=== PATIENT | female | born 1965 | race Two or more races ===

== ENCOUNTER 2017-02-27 21:36 | Emergency (ER) | payer MEDICAID ==
[~2017-02-27] VITALS: Ht 162.6 cm; Wt 89.8 kg
[~2017-02-27 21:36] MED LIST: ALBUTEROL SULF8.5 GM INH; AZITHROMYCIN250 MG PO; IBUPROFEN600 MG PO; NKM
[2017-02-27 22:00] VITALS: BP 159/84
[2017-02-27] MEDS ORDERED: Morphine Sulfate 4mg/ml Inj IVP ONE (22:15)
[2017-02-27 22:49] LABS: APPEARANCE,URINE CLEAR; KETONES,URINE NEGATIVE (NEGATIVE); LEUKOCYTE ESTERASE ,URINE NEGATIVE (NEGATIVE); NITRITE,URINE NEGATIVE (NEGATIVE); PH,URINE 7 (4.5-8.0); PROTEIN,URINE NEGATIVE (NEGATIVE); UROBILINOGEN,URINE NORMAL MG/DL (0.0-1.0)
[2017-02-27 22:50] LABS: BASOPHILS % (AUTO) 1.5 % (0.0-2.0); EOSINOPHILS % (AUTO) 3.3 % (0.0-3.0); LYMPHOCYTES % (AUTO) 47.7 % (20.0-45.0); MEAN CORPUSCULAR HEMOGLOBIN 29.1 PG (27.0-31.0); MEAN CORPUSCULAR HGB CONC 33.2 G/DL (32.0-36.0); MEAN CORPUSCULAR VOLUME 88 FL (80-99); MEAN PLATELET VOLUME 8.9 FL (6.5-10.1); MONOCYTES % (AUTO) 7.1 % (1.0-10.0); NEUTROPHILS % (AUTO) 40.5 % (45.0-75.0); PLATELET COUNT 171 K/UL (150-450); RED BLOOD COUNT 4.56 M/UL (4.20-5.40); RED CELL DISTRIBUTION WIDTH 11.2 % (11.6-14.8); WHITE BLOOD COUNT 6.3 K/UL (4.8-10.8)
[2017-02-27 23:03] LABS: ALANINE AMINOTRANSFERASE 44 U/L (3-33); ALBUMIN/GLOBULIN RATIO 1.3 (1.0-2.7); ANION GAP 14 (5-15); ASPARTATE AMINO TRANSFERASE 44 U/L (5-40); CALCIUM 9.3 mg/dL (8.6-10.2); CARBON DIOXIDE 25 mEQ/L (20-30); CHLORIDE 100 mEQ/L (98-107); CREATININE 0.7 mg/dL (0.5-0.9); GLOMERULAR FILTRATION RATE > 60 mL/min (>60); HEMOLYSIS 3; LIPASE 26 U/L (< 60); POTASSIUM 3.9 mEQ/L (3.4-4.9); SODIUM 139 mEQ/L (135-145); TOTAL PROTEIN 6.9 g/dL (6.6-8.7)
[2017-02-28 00:04] VITALS: BP 135/78
[2017-02-28] MEDS ORDERED: ACETAMINOPHEN-1 EAC1 ORAL (01:58)
[2017-02-28] MEDS ORDERED: IBUPROFEN600 MG ORAL (01:58)
[2017-02-28 02:10] VITALS: BP 129/83
--- NOTE | 2017-02-28 03:35 | Emergency Room Report ---
History of Present Illness General Chief Complaint: Pelvic Pain Source: Patient Present Illness HPI 51-year-old female presents ED complaining of lower pelvic pain times one day. States it started this morning. Pain is localized to left inguinal area radiating to the groin. 10 out of 10, sharp. Denies any vaginal bleeding or discharge. Denies any dysuria or hematuria. Denies any fevers or chills. Denies nausea or vomiting. No other aggravating or relieving factors. Denies any other associated symptoms Allergies: Coded Allergies: No Known Allergies (Unverified , 07/09/12) Patient History Past Medical History: none Past Surgical History: none Pertinent Family History: none Social History: Denies: alcohol use, drug use, smoking Last Menstrual Period: N/A Now: No Immunizations: UTD Reviewed Nursing Documentation: PMH: Agreed, PSxH: Agreed Nursing Documentation-PMH Hx Cardiac Problems: No Hx Cancer: No Hx Gastrointestinal Problems: No Hx Neurological Problems: No Review of Systems All Other Systems: negative except mentioned in HPI Physical Exam Vital Signs Date Time Temp Pulse Resp B/P Pulse Ox O2 Delivery O2 Flow Rate FiO2 02/27/17 21:44 98.4 84 20 159/84 96 Room Air Sp02 EP Interpretation: reviewed, normal General Appearance: no apparent distress, alert, GCS 15, non-toxic, obese Head: normocephalic, atraumatic Eyes: bilateral eye PERRL, bilateral eye normal inspection ENT: hearing grossly normal, normal pharynx, no angioedema, normal voice Neck: full range of motion, supple/symm/no masses Respiratory: chest non-tender, lungs clear, normal breath sounds, speaking full sentences Cardiovascular #1: regular rate, rhythm, no edema Cardiovascular #2: 2+ carotid (R), 2+ carotid (L), 2+ radial (R), 2+ radial (L) , 2+ dorsalis pedis (R), 2+ dorsalis pedis (L) Gastrointestinal: normal bowel sounds, soft, non-distended, no guarding, no rebound, tenderness - L inguinal area Rectal: deferred Genitourinary: normal inspection, no CVA tenderness Musculoskeletal: back normal, gait/station normal, normal range of motion, non- tender Neurologic: alert, oriented x3, responsive, motor strength/tone normal, sensory intact, speech normal Psychiatric: judgement/insight normal, memory normal, mood/affect normal, no suicidal/homicidal ideation Reflexes: 3+ bicep (R), 3+ bicep (L), 3+ tricep (R), 3+ tricep (L), 3+ knee (R) , 3+ knee (L) Skin: normal color, no rash, warm/dry, well hydrated Lymphatic: no adenopathy Medical Decision Making Diagnostic Impression: Primary Impression: Pelvic pain ER Course Hospital Course 51-year-old female to ED with left inguinal pain Differential diagnosis includes- ovarian torsion, diverticulitis, SBO Clinical course Patient placed on stretcher. After initial history and physical I ordered labs , IV fluids, pain medications and Pelvic US Labs - no leukocytosis, electrolytes ok, LFTs normal, UA + blood pelvic US nondiagnostic due to body habitus CT scan shows no acute pathology Upon reassessment, patient states pain has improved. Given improvement in symptoms and lack of acute findings, I believe patient can be safely discharged to home. Patient agrees with plan I feel this is a highly complex case requiring extensive working including EKG/ Rhythm strip, Xray/CT/US, Blood/urine lab work, repeat exams while in ED, and administration of strong opiates/narcotics for pain control, admission to hospital or close patient follow up. Diagnosis - pelvic pain Stable and discharged to home with Rx Motrin, Tylenol #3. Followup with PMD. Return to ED if symptoms recur or worsen Labs Test 02/27/17 22:30 02/27/17 22:33 White Blood Count 6.3 K/UL (4.8-10.8) Red Blood Count 4.56 M/UL (4.20-5.40) Hemoglobin 13.3 G/DL (12.0-16.0) Hematocrit 40.0 % (37.0-47.0) Mean Corpuscular Volume 88 FL (80-99) Mean Corpuscular Hemoglobin 29.1 PG (27.0-31.0) Mean Corpuscular Hemoglobin Concent 33.2 G/DL (32.0-36.0) Red Cell Distribution Width 11.2 % (11.6-14.8) Platelet Count 171 K/UL (150-450) Mean Platelet Volume 8.9 FL (6.5-10.1) Neutrophils (%) (Auto) 40.5 % (45.0-75.0) Lymphocytes (%) (Auto) 47.7 % (20.0-45.0) Monocytes (%) (Auto) 7.1 % (1.0-10.0) Eosinophils (%) (Auto) 3.3 % (0.0-3.0) Basophils (%) (Auto) 1.5 % (0.0-2.0) Sodium Level 139 mEQ/L (135-145) Potassium Level 3.9 mEQ/L (3.4-4.9) Chloride Level 100 mEQ/L (98-107) Carbon Dioxide Level 25 mEQ/L (20-30) Anion Gap 14 (5-15) Blood Urea Nitrogen 13 mg/dL (7-23) Creatinine 0.7 mg/dL (0.5-0.9) Estimat Glomerular Filtration Rate > 60 mL/min (>60) Glucose Level 120 mg/dL (74-106) Calcium Level 9.3 mg/dL (8.6-10.2) Total Bilirubin 0.2 mg/dL (0.0-1.2) Aspartate Amino Transf (AST/SGOT) 44 U/L (5-40) Alanine Aminotransferase (ALT/SGPT) 44 U/L (3-33) Alkaline Phosphatase 115 U/L (35-104) Total Protein 6.9 g/dL (6.6-8.7) Albumin 4.0 g/dL (3.5-5.2) Globulin 2.9 g/dL Albumin/Globulin Ratio 1.3 (1.0-2.7) Lipase 26 U/L (< 60) Urine Color Pale yellow Urine Appearance Clear Urine pH 7 (4.5-8.0) Urine Specific Dawson 1.010 (1.005-1.035) Urine Protein Negative (NEGATIVE) Urine Glucose (UA) Negative (NEGATIVE) Urine Ketones Negative (NEGATIVE) Urine Occult Blood Negative (NEGATIVE) Urine Nitrite Negative (NEGATIVE) Urine Bilirubin Negative (NEGATIVE) Urine Urobilinogen Normal MG/DL (0.0-1.0) Urine Leukocyte Esterase Negative (NEGATIVE) CT/MRI/US Diagnostic Results CT/MRI/US Diagnostic Results : Imaging Test Ordered: Pelvic US, CT A/P Impression Pelvic US - nondiagnostic due to body habitus CT A/P - unremarkable Last Vital Signs Date Time Temp Pulse Resp B/P Pulse Ox O2 Delivery O2 Flow Rate FiO2 02/28/17 02:10 97.5 77 16 129/83 100 Room Air Status: improved Disposition: HOME, SELF-CARE Condition: Stable Scripts Acetaminophen With Codeine (T#3) (TYLENOL #3 TAB*) Y Tab 1 TAB ORAL Q8H Y for For Pain, #20 TAB Prov: MANI NAVAS M.D. 02/28/17 Ibuprofen* (MOTRIN*) 600 Mg Tablet 600 MG ORAL Q8H Y for For Pain, #30 TAB 0 Refills Prov: MANI NAVAS M.D. 02/28/17 Patient Instructions: Pelvic Pain, Female, [id number] MANI NAVAS M.D. Feb 28, 2017 03:35
--- NOTE | 2017-02-28 08:50 | Diagnostic Imaging Report ---
Clinical Indication: Abdominal pain Technique: No oral contrast utilized, per emergency room physician request IV administration nonionic contrast. Venous phase spiral acquisition obtained through the abdomen and pelvis. Multiplanar reconstructions were generated. Total dose length product 967 mGycm. CTDIvol(s) 17 mGy. Dose reduction achieved using automated exposure control Comparison: None Findings: The appendix is normal. No evidence of diverticulosis or diverticulitis. No small bowel distention. No free or loculated intraperitoneal air or fluid. The distal esophagus, stomach, duodenum are unremarkable. The liver demonstrates diffuse low attenuation, consistent with fatty infiltration. No focal abnormality. The gallbladder, bile ducts, pancreas, spleen, adrenals are unremarkable. The right kidney demonstrates equivocal slightly diffuse low attenuation and heterogeneity to the parenchymal enhancement The left kidney demonstrates multiple cysts, as well as a few subcentimeter low-attenuation lesions which are too small to characterize. No retroperitoneal or mesenteric mass or adenopathy. No pelvic mass or adenopathy. There are very small fat-containing bilateral inguinal hernias incidentally noted. The included lung bases demonstrate atelectatic changes bilaterally. The bones demonstrate degenerative lumbar spondylosis changes. Impression: Equivocally abnormal right renal enhancement, could indicate pyelonephritis changes. Correlate with clinical and laboratory findings No other acute abnormality Fatty liver Multiple left renal cysts. Multiple left renal subcentimeter low-attenuation regions, too small to characterize, most likely benign simple cortical cysts. No further followup necessary Incidental finding of bilateral basilar pulmonary atelectasis, degenerative lumbar spondylosis, small fat-containing bilateral inguinal hernias This agrees with the preliminary interpretation provided overnight by [facility] teleradiology service. The CT scanner at [facility] [place] [facility] is accredited by the [employer] and the scans are performed using protocols designed to limit radiation exposure to as low as reasonably achievable to attain images of sufficient resolution adequate for diagnostic evaluation.
--- NOTE | 2017-03-01 08:24 | Diagnostic Imaging Report ---
Indication: ABD PAIN Technique: Transabdominal and transvaginal images Comparison: None Findings: Exam is limited due to patient body habitus. Uterus measures 7.8 cm length by 3.8 cm AP. Endometrium measures 8 mm thick. No gross myometrial abnormalities. Right ovary measures 2.7 cm in length. Left ovary findings in meters in length. No adnexal mass demonstrated. No free cul-de-sac fluid. Impression: Limited due to body habitus. Essentially unremarkable exam
== END 2017-02-28 02:10 | disposition home or self-care (01) ==
LOC: EMR 22:02
DX: R10.2 Pelvic and perineal pain (principal); K76.0 Fatty (change of) liver, not elsewhere classified; N28.1 Cyst of kidney, acquired; M47.816 Spondylosis without myelopathy or radiculopathy, lumbar region; K40.90 Unilateral inguinal hernia, without obstruction or gangrene, not specified as recurrent
CPT/HCPCS: 36415; 74177; 76830; 76856; 80053; 81003; 83690; 85025; 96360; 96374; 99284; J2270; J7040; Q9967

== ENCOUNTER 2019-03-31 20:08 | Inpatient (IN) | payer MEDICAID ==
[~2019-03-31] VITALS: Ht 162.6 cm; Wt 98.9 kg
[~2019-03-31 20:08] MED LIST changes: +ACETAMINOPHEN-1 EAC1 ORAL; +IBUPROFEN600 MG ORAL
--- NOTE | 2019-03-31 20:24 | NUR ---
ED Nurse Note: Pt ambulated to ED from home c/o sudden pressure in chest as well as 8/10 headache since 5pm, pt c/o dizziness, denies cardiac hx. VSS A&Ox4
[2019-03-31 20:25] VITALS: BP 158/93
[2019-03-31] MEDS ORDERED: Aspirin Baby 81mg ORAL ONE (20:30)
[2019-03-31 20:35] LABS: HEMATOCRIT 42.5 % (37.0-47.0); HEMOGLOBIN 14.6 G/DL (12.0-16.0); LYMPHOCYTES % (AUTO) 41.9 % (20.0-45.0); MEAN CORPUSCULAR VOLUME 84 FL (80-99); MONOCYTES % (AUTO) 7.3 % (1.0-10.0); NEUTROPHILS % (AUTO) 45.7 % (45.0-75.0); PLATELET COUNT 185 K/UL (150-450); RED BLOOD COUNT 5.06 M/UL (4.20-5.40); RED CELL DISTRIBUTION WIDTH 10.7 % (11.6-14.8)
[2019-03-31 20:45] LABS: INR 0.9 (0.9-1.1)
[2019-03-31 20:46] LABS: ANION GAP 7 mmol/L (5-15); BLOOD UREA NITROGEN 7 mg/dL (7-18); CALCIUM 9.2 MG/DL (8.5-10.1); CARBON DIOXIDE 28 MMOL/L (21-32); CHLORIDE 103 MMOL/L (98-107); CREATININE 0.7 MG/DL (0.55-1.30); POTASSIUM 3.7 MMOL/L (3.5-5.1); SODIUM 138 MMOL/L (136-145)
--- NOTE | 2019-03-31 20:50 | Emergency Room Report ---
History of Present Illness General Chief Complaint: Chest Pain Source: Patient Present Illness HPI 53-year-old female presents with chest pain history of ACS in her family, mother had a heart attack, patient states her chest pain feels pressure-like started at 5 PM has been constant, denies any aggravating relieving factors, no radiation of her pain, no nausea, no vomiting, she feels short of breath patient presents for evaluation. Allergies: Coded Allergies: No Known Allergies (Unverified , 07/09/12) Patient History Past Medical History: see triage record Social History: Reports: alcohol use - Social Last Menstrual Period: n/a Reviewed Nursing Documentation: PMH: Agreed; PSxH: Agreed Nursing Documentation-PMH Past Medical History: No Stated History Hx Cardiac Problems: No Hx Cancer: No Hx Gastrointestinal Problems: No Hx Neurological Problems: No Review of Systems All Other Systems: negative except mentioned in HPI Physical Exam Vital Signs Date Time Temp Pulse Resp B/P (MAP) Pulse Ox O2 Delivery O2 Flow Rate FiO2 03/31/19 20:12 98.8 88 18 158/93 (114) 94 Room Air Sp02 EP Interpretation: reviewed, normal General Appearance: well appearing, no apparent distress, alert Head: normocephalic, atraumatic Eyes: bilateral eye PERRL, bilateral eye EOMI ENT: uvula midline, moist mucus membranes Neck: supple, thyroid normal, supple/symm/no masses Respiratory: lungs clear, no respiratory distress, no retraction, no accessory muscle use Cardiovascular #1: normal peripheral pulses, regular rate, rhythm, no edema, no gallop, no murmur Gastrointestinal: non tender, soft, no guarding, no rebound Musculoskeletal: normal inspection Neurologic: alert, oriented x3 Psychiatric: mood/affect normal Skin: no rash, warm/dry Medical Decision Making Diagnostic Impression: Primary Impression: Chest pain ER Course 53-year-old female presents with chest pain, will admit patient for ACS rule out , patient noted to have some EKG changes with some mild depressions, patient also noted to have elevated LFTs, however patient has no right upper quadrant pain. Patient admitted to Dr. Salgado. Aspirin given to patient Nitro given to patient Dispo tele Laboratory Tests Test 03/31/19 20:15 White Blood Count 8.0 K/UL (4.8-10.8) Red Blood Count 5.06 M/UL (4.20-5.40) Hemoglobin 14.6 G/DL (12.0-16.0) Hematocrit 42.5 % (37.0-47.0) Mean Corpuscular Volume 84 FL (80-99) Mean Corpuscular Hemoglobin 28.8 PG (27.0-31.0) Mean Corpuscular Hemoglobin Concent 34.3 G/DL (32.0-36.0) Red Cell Distribution Width 10.7 % (11.6-14.8) L Platelet Count 185 K/UL (150-450) Mean Platelet Volume 7.8 FL (6.5-10.1) Neutrophils (%) (Auto) 45.7 % (45.0-75.0) Lymphocytes (%) (Auto) 41.9 % (20.0-45.0) Monocytes (%) (Auto) 7.3 % (1.0-10.0) Eosinophils (%) (Auto) 4.0 % (0.0-3.0) H Basophils (%) (Auto) 1.0 % (0.0-2.0) Prothrombin Time 10.0 SEC (9.30-11.50) Prothrombin Time INR 0.9 (0.9-1.1) PTT 28 SEC (23-33) Urine HCG, Qualitative Negative (NEGATIVE) Sodium Level 138 MMOL/L (136-145) Potassium Level 3.7 MMOL/L (3.5-5.1) Chloride Level 103 MMOL/L (98-107) Carbon Dioxide Level 28 MMOL/L (21-32) Anion Gap 7 mmol/L (5-15) Blood Urea Nitrogen 7 mg/dL (7-18) Creatinine 0.7 MG/DL (0.55-1.30) Estimate Glomerular Filtration Rate > 60 mL/min (>60) Glucose Level 132 MG/DL (74-106) H Calcium Level 9.2 MG/DL (8.5-10.1) Total Bilirubin 0.3 MG/DL (0.2-1.0) Aspartate Amino Transferase (AST) 63 U/L (15-37) H Alanine Aminotransferase (ALT) 82 U/L (12-78) H Alkaline Phosphatase 128 U/L (46-116) H Total Creatine Kinase 75 U/L (26-308) Creatine Kinase MB 1.2 NG/ML (0.0-3.6) Creatine Kinase MB Relative Index 1.6 Troponin I 0.000 ng/mL (0.000-0.056) Pro-B-Type Natriuretic Peptide 43 pg/mL (0-125) Total Protein 8.2 G/DL (6.4-8.2) Albumin 3.7 G/DL (3.4-5.0) Globulin 4.5 g/dL Albumin/Globulin Ratio 0.8 (1.0-2.7) L EKG Diagnostic Results EKG Time: 20:18 EP Interpretation: SR, rate 88, QTc 433, no acute ST elevations, depressions noted in V4 V5 V6 Rate: normal Rhythm: NSR ST Segments: other - Depressions noted ASA given to the pt in ED: Yes Rhythm Strip Diag. Results Rhythm Strip Time: 20:36 EP Interpretation: yes Rate: 90 Rhythm: NSR, no PVC's, no ectopy Chest X-Ray Diagnostic Results Chest X-Ray Diagnostic Results : Chest X-Ray Ordered: Yes # of Views/Limited/Complete: 1 View Indication: Chest Pain EP Interpretation: Yes Interpretation: no consolidation, no effusion, no pneumothorax, no acute cardiopulmonary disease Impression: No acute disease Electronically Signed by: Javan Rodrigues MD Last Vital Signs Date Time Temp Pulse Resp B/P (MAP) Pulse Ox O2 Delivery O2 Flow Rate FiO2 03/31/19 20:25 88 18 Room Air 03/31/19 20:25 98.8 158/93 94 Disposition: ADMITTED INPATIENT Condition: Stable Referrals: NOT CHOSEN IPA/,REFERRING (PCP) Javan Rodrigues MD Mar 31, 2019 20:50
[2019-03-31 21:00] LABS: ALANINE AMINOTRANSFERASE 82 U/L (12-78); ALBUMIN 3.7 G/DL (3.4-5.0); ALBUMIN/GLOBULIN RATIO 0.8 (1.0-2.7); ALKALINE PHOSPHATASE 128 U/L (46-116); ASPARTATE AMINO TRANSFERASE 63 U/L (15-37); BILIRUBIN,TOTAL 0.3 MG/DL (0.2-1.0); CKMB 1.2 NG/ML (0.0-3.6); CREATINE KINASE 75 U/L (26-308)
[2019-03-31] MEDS ORDERED: DiphenhydrAMINE 50mg/ml Inj IVP ONE (21:15)
[2019-03-31] MEDS ORDERED: Nitroglycerin 2% oint pkt TOPIC ONE (21:15)
--- NOTE | 2019-03-31 22:42 | NUR ---
NURSE NOTES: Contacted Dr. Salgado for admission orders. Awaiting call back.
[2019-03-31 22:45] VITALS: BP 136/78
--- NOTE | 2019-03-31 22:45 | NUR ---
NURSE NOTES: Received pt from ED via gurney. Pt transferred to [facility] without any incident. Received report from MENDEZ Medel. surveillance monitor is in placed; pt is NSR. IV site intact, asymptomatic and patent. Belongings list checked and accounted. Bed is in the lowest position and locked. Call light within reach. No signs or symptoms of chest pain or acute distress noted at this time. Will contact Dr. Salgado for admission orders.
--- NOTE | 2019-03-31 22:45 | NUR ---
TRANSFER TO FLOOR: Patient transferred to as ordered, per Dr Salgado. Report given to MENDEZ Maya. Belongings and medications given to . Family and or S/O informed of transfer.
--- NOTE | 2019-03-31 23:47 | NUR ---
NURSE NOTES: Received admission orders from Dr. Salgado. Will note and carry out.
[2019-04-01] VITALS: BP 135/72
[2019-04-01] MEDS ORDERED: Nitroglycerin Subl 0.4mg tab SL PRN (00:15)
[2019-04-01 04:00] VITALS: BP 133/76
--- NOTE | 2019-04-01 07:13 | NUR ---
NURSE NOTES: Received report from MENDEZ Maya. The patient is having a breakfast on the bed without acute distress or shortness of breath. She denies of chest pain, shortness of breath, or dizziness at this time. The patient's bed in the lowest position, call light in reach, and fall and aspiration precaution reinforced. IV intact and patent. Will continue plan of care.
--- NOTE | 2019-04-01 07:41 | NUR ---
NURSE NOTES: Notified Dr. Salgado regarding elevation of ALT and AST. Notified Dr. Salgado regarding last figure of Troponin. Will continue to monitor the patient. Will continue plan of care.
--- NOTE | 2019-04-01 07:52 | NUR ---
HAND-OFF: Report given to MENDEZ Quevedo.
--- NOTE | 2019-04-01 07:54 | History & Physical ---
History and Physical History & Physicial History and Physical HPI Patient is a 53-year-old female presents with chest pain, has a family history of CAD, mother had a heart attack, patient states her chest pain feels pressure- like started at 5 PM yesterday, was constant, denies any aggravating relieving factors, no radiation of her pain, no nausea, no vomiting, she feels short of breath patient presents for evaluation. Allergies: No Known Allergies Past Medical History: none noted All Other Systems: negative except mentioned in HPI Physical Exam Vital Signs Noted General Appearance: well appearing, no apparent distress, alert Head: normocephalic, atraumatic Eyes: bilateral eye PERRL, bilateral eye EOMI ENT: uvula midline, moist mucus membranes Neck: supple, thyroid normal, supple/symm/no masses Respiratory: lungs clear, no respiratory distress, no retraction, no accessory muscle use Cardiovascular: normal heart sounds, normal peripheral pulses, regular rate, rhythm, no edema, no gallop, no murmur Gastrointestinal: non tender, soft, no guarding, no rebound Musculoskeletal: normal inspection Neurologic: alert, oriented tpp, no focal signs Skin: no rash, no edema Impression: Chest pain ST depressions Elevated Liver functions Plan: Monitor labs ASA PRN nitrates Analgesia Cardiac Consultations PPX Abdominal US Laboratory Tests Test 03/31/19 20:15 White Blood Count 8.0 K/UL (4.8-10.8) Red Blood Count 5.06 M/UL (4.20-5.40) Hemoglobin 14.6 G/DL (12.0-16.0) Hematocrit 42.5 % (37.0-47.0) Mean Corpuscular Volume 84 FL (80-99) Mean Corpuscular Hemoglobin 28.8 PG (27.0-31.0) Mean Corpuscular Hemoglobin Concent 34.3 G/DL (32.0-36.0) Red Cell Distribution Width 10.7 % (11.6-14.8) L Platelet Count 185 K/UL (150-450) Mean Platelet Volume 7.8 FL (6.5-10.1) Neutrophils (%) (Auto) 45.7 % (45.0-75.0) Lymphocytes (%) (Auto) 41.9 % (20.0-45.0) Monocytes (%) (Auto) 7.3 % (1.0-10.0) Eosinophils (%) (Auto) 4.0 % (0.0-3.0) H Basophils (%) (Auto) 1.0 % (0.0-2.0) Prothrombin Time 10.0 SEC (9.30-11.50) Prothrombin Time INR 0.9 (0.9-1.1) PTT 28 SEC (23-33) Urine HCG, Qualitative Negative (NEGATIVE) Sodium Level 138 MMOL/L (136-145) Potassium Level 3.7 MMOL/L (3.5-5.1) Chloride Level 103 MMOL/L (98-107) Carbon Dioxide Level 28 MMOL/L (21-32) Anion Gap 7 mmol/L (5-15) Blood Urea Nitrogen 7 mg/dL (7-18) Creatinine 0.7 MG/DL (0.55-1.30) Estimate Glomerular Filtration Rate > 60 mL/min (>60) Glucose Level 132 MG/DL (74-106) H Calcium Level 9.2 MG/DL (8.5-10.1) Total Bilirubin 0.3 MG/DL (0.2-1.0) Aspartate Amino Transferase (AST) 63 U/L (15-37) H Alanine Aminotransferase (ALT) 82 U/L (12-78) H Alkaline Phosphatase 128 U/L (46-116) H Total Creatine Kinase 75 U/L (26-308) Creatine Kinase MB 1.2 NG/ML (0.0-3.6) Creatine Kinase MB Relative Index 1.6 Troponin I 0.000 ng/mL (0.000-0.056) Pro-B-Type Natriuretic Peptide 43 pg/mL (0-125) Total Protein 8.2 G/DL (6.4-8.2) Albumin 3.7 G/DL (3.4-5.0) Globulin 4.5 g/dL Albumin/Globulin Ratio 0.8 (1.0-2.7) L EKG: SR, rate 88, QTc 433, no acute ST elevations, depressions noted in V4 V5 V6 Chest X-Ray: no consolidation, no effusion, no pneumothorax, no acute cardiopulmonary disease Mushtaq Abbott MD Apr 01, 2019 07:54
[2019-04-01 08:00] VITALS: BP 124/77
[2019-04-01] MEDS: Aspirin Baby 81mg ORAL SCH (08:33)
[2019-04-01] MEDS: Heparin 5000 units/ml inj SUBQ SCH ×2 (08:34→20:42)
--- NOTE | 2019-04-01 10:55 | Diagnostic Imaging Report ---
Indication: Chest pain Comparison: None A single view chest radiograph was obtained. Findings: Cardiomediastinal appearance is within normal limits for age. The lungs are clear. Pulmonary vascularity is appropriate. The diaphragmatic contour is smooth and costophrenic angles are sharp. No pleural effusions are identified. There is an old right clavicle fracture demonstrated. The bones are otherwise unremarkable. Impression: No acute findings
[2019-04-01 12:00] VITALS: BP 115/78
--- NOTE | 2019-04-01 15:56 | NUR ---
CASE MANAGEMENT:REVIEW 53 YR OLD FEMALE PRESENTED TO ER CC: CHEST PAIN RADIATING TO BACK OF NECK SI: CHEST PAIN 98.8 88 18 158/93 94% ON RA TROPONIN(-) X2 AST/ALT+63/82 IS: ASA PO 1L NS BOLUS CHEST XRAY : TO TELEMETRY
[2019-04-01 16:00] VITALS: BP 133/79
--- NOTE | 2019-04-01 17:03 | Diagnostic Imaging Report ---
Indication: Elevated liver function tests Technique: Grayscale and duplex Doppler imaging of the abdomen performed. Comparison: None Findings: The liver is echogenic. Doppler interrogation of the main portal vein shows patency with hepatopedal, monophasic flow. There is no biliary ductal dilatation identified. Gallbladder is unremarkable. Sonographic Tobias's sign was negative per technologist. CBD is 3 mm. There demonstrated part of the pancreas, aorta and IVC show no definite abnormalities. There is a small echogenic focus in the left kidney without shadowing. This is questionable for an angiomyolipoma. Suggestion of small cysts also present within the left kidney. There is no hydronephrosis. IMPRESSION: Fatty liver. Left liver cysts. Possible small angiomyolipoma left kidney.
--- NOTE | 2019-04-01 19:09 | NUR ---
HAND-OFF: Report given to MENDEZ Lane. The patient is resting on the bed without acute distress or shortness of breath. The patient's bed in the lowest position, call light in reach, and fall and aspiration precaution reinforced. Endorsed plan of care.
--- NOTE | 2019-04-01 19:15 | NUR ---
NURSE NOTES: Received report from MENDEZ Quevedo. Patient sitting high fowlers in bed awake showing no signs of acute distress. Respiration even and non labored on room air. AOx4. IV on Right AC 20g. SL patent and intact. Bed in lowest position, wheels locked and alarm on. Call light within reach. All needs attended and met. Will continue plan of care.
[2019-04-01 20:00] VITALS: BP 121/66
[2019-04-02] VITALS: BP 145/71
--- NOTE | 2019-04-02 00:43 | NUR ---
HAND-OFF: Report given to MENDEZ Oswald, and MENDEZ Ramirez.
--- NOTE | 2019-04-02 00:57 | NUR ---
NURSE NOTES: Received report from MENDEZ Lane. Patient is asleep lying semi-siu's; resting comfortably. Arousable to verbal and tactile stimuli. No signs of acute distress or pain noted at this time. Family member at bedside. AOx4; able to make needs known. Primarily Georgian speaking. Checked IV site; patent and flushed. No erythema, bleeding, or infiltration noted. Bed at lowest position, brakes on, siderails up x2. Call light within reach. Will continue to monitor.
[2019-04-02 04:00] VITALS: BP 115/66
--- NOTE | 2019-04-02 04:27 | NUR ---
NURSE NOTES: Patient is asleep lying semi-siu's; resting comfortably. No signs of acute distress or pain noted at this time. Family member at bedside.
--- NOTE | 2019-04-02 07:57 | NUR ---
HAND-OFF: Report given to MENDEZ Hua. Patient is awake lying semi-siu's; resting comfortably. Family member at bedside. In stable condition. Endorsed to oncoming RN regarding patient's pending stress test procedure later today; verbalized understanding.
[2019-04-02 08:00] VITALS: BP 147/82
[2019-04-02] MEDS ORDERED: Lexiscan 0.4mg/5ml syringe IV PRN (08:00)
--- NOTE | 2019-04-02 08:24 | NUR ---
pt. in bed awake, Aox4. Pt IV site intact and patent, will have lexiscan this morning. Pt NPO no chocolate no coffee until after test. Pt is on diagnostic cardiac sonographer no cardiac or respiratory distress at this time. Pt has no chest pain. Bed is locked and in lowest position. Call light is within reach. Will continue to follow plan of care.
--- NOTE | 2019-04-02 08:32 | General Progress Note ---
Assessment/Plan Assessment/Plan: chest pain possible ACS elevated LFT PLAN stress test cards follow up maintain same meds dc once cleared impression, plan, and exam edited and reviewed in detail care discussed with RN Subjective Allergies: Coded Allergies: No Known Allergies (Unverified , 07/09/12) Subjective cards appreciated stress test ordered Objective Last 24 Hour Vital Signs Date Time Temp Pulse Resp B/P (MAP) Pulse Ox O2 Delivery O2 Flow Rate FiO2 04/02/19 04:00 85 04/02/19 04:00 97.5 93 18 115/66 (82) 97 04/02/19 00:00 90 04/02/19 00:00 98.1 91 18 145/71 (95) 95 04/01/19 21:00 Room Air 04/01/19 20:00 98 04/01/19 20:00 98.2 92 18 121/66 (84) 95 04/01/19 16:00 97.3 79 18 133/79 (97) 97 04/01/19 16:00 83 04/01/19 12:00 97.7 82 18 115/78 (90) 95 04/01/19 11:55 78 04/01/19 09:00 Room Air Intake and Output 04/01/19 04/02/19 19:00 07:00 Intake Total 140 ml 240 ml Balance 140 ml 240 ml Intake Oral 140 ml 240 ml # Voids 3 2 Laboratory Tests 04/01/19 12:05: Troponin I 0.003 04/01/19 19:45: Troponin I 0.007 Height (Feet): 5 Height (Inches): 4.00 Weight (Pounds): 218 Objective WDWN NAD clear breath sounds bilaterally without rhonchi or wheeze [id number] without MRG NABS nontender no HSM no CCE nonfocal Gio Salgado MD Apr 02, 2019 08:32
[2019-04-02] MEDS: Aspirin Baby 81mg ORAL SCH (09:00)
--- NOTE | 2019-04-02 09:04 | NUR ---
CASE MANAGEMENT:REVIEW 04/02/19 SI: CHEST PAIN. POSSIBLE ACS 97.7 78 16 147/82 96% ON RA TROPONIN(-) X4 IS: IV LEXISCAN (FOR STRESS TEST) HEPARIN SQ Q12 ASA PO QD PROTONIX PO QD ADVIL PO QID PRN : TELEMETRY STATUS DCP: FROM HOME PLAN: STRESS TEST FOR TODAY
[2019-04-02] MEDS: Heparin 5000 units/ml inj SUBQ SCH (09:16)
[2019-04-02 12:00] VITALS: BP 138/72
--- NOTE | 2019-04-02 14:34 | Diagnostic Imaging Report ---
Indications: Chest pain Technique: Single day single isotope protocol utilized. Initially, resting images obtained using IV administration 10.1 millicuries 99M technetium Myoview. Subsequently, patient underwent lexiscan stress testing. See cardiology report for details. During Lexiscan infusion, IV administration 30.2 mCi 99 M technetium Myoview. SPECT and planar images obtained. SPECT images gated to 8 phases of the cardiac cycle were also obtained, and reformatted into cine images for evaluation of ejection fraction. Comparison: none Findings: Presence or absence of symptoms during infusion is not described in the cardiology report. Per cardiology report, resting EKG demonstrates normal sinus rhythm. Presence or absence of ST-T wave changes during infusion is not described in the cardiology report. Imaging demonstrates normal poststress perfusion, no fixed nor reversible poststress perfusion defects. Calculated post stress ejection fraction 73%. Gated images demonstrate no evidence of focal wall motion abnormality Impression: Nonischemic clinical response to pharmacologic stress, per cardiology report Nonischemic electrocardiographic response to pharmacologic stress, per cardiology report No imaging findings to suggest ischemia, at level of stress achieved. Calculated post stress ejection fraction 73%
--- NOTE | 2019-04-02 15:06 | NUR ---
NURSE NOTES: Md placed order for discharge as he reviewed cards exam, order for discharge placed and will be discharged soon.
--- NOTE | 2019-04-02 16:28 | NUR ---
NURSE NOTES: pt discharge at 1620 in stable condition. cardiac monitor off no signs of cardiac or respiratory distress. IV discontinued no bleeding noted. Pt was given DC instruction, and medications were reviewed with pt. and Pt verbalized understanding. Belonging sheet was reviewed with pt. and pt signed it off. Pt has money and ph with her as well as all personal belongings. Pt will schedule an appt with her PCP within 1 wk. Pt left with family members in private vehicle.
--- NOTE | 2019-04-03 13:00 | Cardiology Report ---
APPROVED REPORT EXAM: Two-dimensional and M-mode echocardiogram with Doppler and color Doppler. INDICATION Chest Pain M-Mode DIMENSIONS IVSd0.8 (0.7-1.1cm)Left Atrium (MM)2.4 (1.6-4.0cm) LVDd4.7 (3.5-5.6cm)Aortic Root3.1 (2.0-3.7cm) PWd1.0 (0.7-1.1cm)Aortic Cusp Exc.1.6 (1.5-2.0cm) IVSs1.3 cm LVDs3.2 (2.5-4.0cm) PWs1.1 cm Technically difficult study due to poor acoustical windows. Normal left ventricular chamber size, systolic function and wall motion to extent visualized. Left ventricular ejection fraction estimated to be 60%. No evidence left ventricular hypertrophy. No evidence of pericardial effusion. All other cardiac chamber sizes are within normal limits. Aortic valve calcification with normal cusp excursion . Mildly thickened mitral valve leaflets with normal excursion. Mild mitral annulus and aortic root calcification. Pulmonic valve not well visualized. IVC at normal size with physiologic collapse. A color flow and spectral Doppler study was performed and revealed: No aortic insufficiency . Mitral diastolic velocities suggest reduced left ventricular relaxation c/w mild LV diastolic dysfunction (Grade I ) Trace mitral regurgitation. Mild tricuspid regurgitation. Tricuspid systolic velocities suggests peak right ventricular systolic pressure of 25mmHg.
--- NOTE | 2019-04-04 14:42 | Cardiology Report ---
APPROVED REPORT EKG Measurement Heart [id number] Normal sinus rhythm Normal ECG
--- NOTE | 2019-04-04 14:55 | Cardiology Report ---
APPROVED REPORT EKG Measurement Heart [id number] Normal sinus rhythm Nonspecific ST abnormality Abnormal ECG
--- NOTE | 2019-04-06 09:38 | Discharge Summary ---
Discharge Summary Discharge Summary _ DATE OF ADMISSION: 03/31/2019 DATE OF DISCHARGE: 04/02/2019 DISCHARGED BY: Dr. Salgado REASON FOR ADMISSION: 53 years old female with no significant past medical history, family history of coronary artery disease ( mother had a heart attack ), presented with complaint of chest pain , felt pressure-like constant without radiation, constant. Patient denied nausea and vomiting. She felt short of breath. Upon evaluation blood pressure was elevated 158/93. Laboratory work-up revealed no leukocytosis , stable hemoglobin and hematocrit. Urine test is negative. Stable electrolytes and renal parameters. Elevated AST 63 and ALT 82. Troponin negative, pro BNP 43. EKG revealed normal sinus rhythm. Chest x-ray revealed no acute cardiopulmonary pathology. In emergency department patient received aspirin and nitroglycerin and subsequently was admitted to telemetry floor for further management. 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 Serial troponin were negative. EKG revealed no acute ischemic changes. Patient was rule out for acute myocardial infarction. Echocardiogram revealed preserved ejection fraction of 60%. No evidence of wall motion abnormality. No evidence of left ventricular hypertrophy. No evidence of pericardial effusion. Right ventricular systolic pressure of 25. Patient subsequently undergone myocardial perfusion scan test as per cardiology recommendation. Stress test was nonischemic with calculated post stress ejection fraction of 73 %. Patient was on antiplatelet therapy with aspirin. Nitroglycerin was on board as needed. Pain was managed with nonsteroidal anti-inflammatory medication as needed. Blood pressure remained stable. Pulse oximetry was stable on room air. DVT and GI prophylaxis provided. Patient undergone abdominal ultrasound due to elevated LFT. Minimally elevated AST and ALT were likely due to fatty liver disease. Patient clinically stabilized . Chest pain resolved. Patient was stable for discharge home . FINAL DIAGNOSES: Chest pain Possible acute coronary syndrome Elevated LFT, possibly due to fatty liver DISCHARGE MEDICATIONS: See Medication Reconciliation list. DISCHARGE INSTRUCTIONS: Patient was discharged home. Follow up with primary care provider in one week. I have been assigned to dictate discharge summary for this account. I was not involved in the patient's management. Yesica Reed NP Apr 06, 2019 09:38
--- NOTE | 2019-04-08 13:45 | Diagnostic Imaging Report ---
APPROVED REPORT CPT Code: 20288 Present Symptoms Comments: Chest Pain BILATERAL: Imaging reveals a patent deep venous system bilaterally. There is no evidence of thrombus within the common femoral, superficial femoral, popliteal or tibial segments. The greater saphenous veins are within normal limits. Doppler indicates normal spontaneous flow within these segments.
== END 2019-04-02 16:20 | disposition home or self-care (01) | DRG 198 ==
LOC: EMR 20:18 → 2E 20:35 → EDBEDREQ 21:28
DX: I24.9 Acute ischemic heart disease, unspecified (principal); I25.10 Atherosclerotic heart disease of native coronary artery without angina pectoris; K76.0 Fatty (change of) liver, not elsewhere classified
CPT/HCPCS: 36415; 71045; 76700; 78452; 80053; 81025; 82550; 82553; 83880; 84484; 85025; 85610; 85730; 93005; 93017; 93306; 93970; 96374; 96375; 99285; J2785